=== PATIENT | male | born 1980 | race Caucasian/White ===

== ENCOUNTER 2021-04-24 06:44 | Inpatient (IN) | payer OTHER ==
[~2021-04-24] VITALS: Ht 182.9 cm; Wt 99.0 kg
--- NOTE | 2021-04-24 06:45 | NUR ---
INITIAL PT CONTACT. PT PRESENTS TO ED VIA EMS A TRANSFER FROM [facility], DX NSTEMI TROP OF 0.6. INITIALLY C/O CHEST PAIN NOW RESOLVED. HX OF PRIOR NSTEMI. PT GIVEN 4 DOSES OF NTG GOODS LAYER. PT DENIES ANY COMPLAINTS AT THIS TIME, ASIDE FROM HEADACHE. PT SITTING UPRIGHT ON GURNEY, CONTINUOUS MONITORING IN PLACE. CALL LIGHT AND BELONGINGS WITHIN REACH. EKG COMPLETE UPON ARRIVAL. SPOUSE AT BEDSIDE.
--- NOTE | 2021-04-24 06:58 | NUR ---
BEDSIDE REPORT GIVEN TO TERESSA CHOW
[2021-04-24] MEDS ORDERED: SODIUM CHLORIDE FLUSH 10ML SYR IVF ONE (07:00)
[2021-04-24] MEDS ORDERED: LISI-170 PO (07:08)
--- NOTE | 2021-04-24 07:28 | NUR ---
REPORT TO CLAUDINE YOUSSEF
[2021-04-24 08:00] VITALS: BP 138/93
[2021-04-24] MEDS ORDERED: ONDANSETRON 2MG/ML, 2ML IVPush PRN (08:30)
[2021-04-24] MEDS ORDERED: LABETALOL 5MG/ML, 20ML IVPush PRN (08:30)
[2021-04-24] MEDS ORDERED: ONDANSETRON ODT 4 MG PO PRN (08:30)
[2021-04-24] MEDS ORDERED: NITROGLYCERIN 0.4 MG BOTTLE (25 TABS) SL PRN (08:30)
[2021-04-24] MEDS ORDERED: ACETAMINOPHEN 325 MG TABLET PO PRN (08:30)
[2021-04-24] MEDS ORDERED: HEPARIN 5,000 UNITS/ML, 1ML IV ONE (09:00)
[2021-04-24] MEDS ORDERED: HEPARIN 25,000 UNITS/250ML PMX 250 ML IV PRN (09:00)
[2021-04-24] MEDS ORDERED: HEPARIN 5,000 UNITS/ML, 1ML IV PRN (09:00)
[2021-04-24] MEDS: LISINOPRIL 5 MG TABLET PO SCH (09:07)
[2021-04-24] MEDS: SODIUM CHLORIDE 0.9% 1,000 ML IV SCH ×2 (09:07→22:59)
[2021-04-24 09:13] LABS: BASOPHILS % (AUTO) 0 % (0-1); EOSINOPHILS % (AUTO) 2 % (1-7); LYMPHOCYTES % (AUTO) 32 % (22-44); MEAN CORPUSCULAR HEMOGLOBIN 29.9 pg (27.5-34.5); MEAN CORPUSCULAR HGB CONC 34.3 g/dL (33.2-36.2); MEAN PLATELET VOLUME 7.5 fL (7.4-10.4); MONOCYTES % (AUTO) 9 % (2-9); NEUTROPHILS % (AUTO) 57 % (42-75); PLATELET COUNT 219 x10^3/uL (130-400)
[2021-04-24 09:15] LABS: ANION GAP 10 mmol/L (5-15); CHLORIDE 108 mmol/L (98-107); CREATININE 0.87 mg/dL (0.7-1.3)
[2021-04-24] MEDS: COLCHICINE 0.6 MG CAPSULE PO SCH ×2 (10:22→20:10)
[2021-04-24] MEDS: KETOROLAC 30 MG/1 ML IVPush SCH ×3 (10:22→20:10)
[2021-04-24 12:43] VITALS: BP 138/93
[2021-04-24 15:34] VITALS: BP 131/90
[2021-04-24] MEDS: CARVEDILOL 3.125 MG TABLET PO SCH (17:51)
[2021-04-24 19:14] VITALS: BP 119/80
[2021-04-24] MEDS ORDERED: ATORVASTATIN 80 MG TABLET PO SCH (21:00)
[2021-04-24 22:46] VITALS: BP 154/98
[2021-04-24] MEDS: morphine SULFATE 10 MG/ML, 1ML IVPush PRN ×2 (22:58→23:23)
[2021-04-24] MEDS ORDERED: NITROGLYCERIN 0.4 MG/SPRAY SL PRN (23:00)
[2021-04-25 01:18] VITALS: BP 114/73
[2021-04-25 05:07] LABS: BASOPHILS % (AUTO) 0 % (0-1); EOSINOPHILS % (AUTO) 2 % (1-7); LYMPHOCYTES % (AUTO) 33 % (22-44); MEAN CORPUSCULAR HEMOGLOBIN 30.6 pg (27.5-34.5); MEAN CORPUSCULAR HGB CONC 34.9 g/dL (33.2-36.2); MEAN PLATELET VOLUME 8.1 fL (7.4-10.4); MONOCYTES % (AUTO) 8 % (2-9); NEUTROPHILS % (AUTO) 58 % (42-75); PLATELET COUNT 210 x10^3/uL (130-400); RED BLOOD COUNT 4.61 x10^6/uL (4.38-5.82); RED CELL DISTRIBUTION WIDTH 13.8 % (9.4-14.8)
[2021-04-25 05:16] LABS: ANION GAP 5 mmol/L (5-15); CALCIUM 8.3 mg/dL (8.5-10.1); CHLORIDE 111 mmol/L (98-107); CREATININE 0.73 mg/dL (0.7-1.3)
[2021-04-25 05:18] VITALS: BP 127/85
[2021-04-25] MEDS: KETOROLAC 30 MG/1 ML IVPush SCH ×2 (05:20→09:41)
[2021-04-25] MEDS: CARVEDILOL 3.125 MG TABLET PO SCH (05:21)
[2021-04-25] MEDS ORDERED: ASPIRIN 325 MG TABLET EC PO SCH (06:00)
[2021-04-25 06:49] VITALS: BP 123/78
[2021-04-25] MEDS: COLCHICINE 0.6 MG CAPSULE PO SCH (09:41)
[2021-04-25] MEDS: LISINOPRIL 5 MG TABLET PO SCH (09:41)
[2021-04-25 12:44] VITALS: BP 132/76
[2021-04-25] MEDS ORDERED: LISI5TAB7 PO (13:14)
== END 2021-04-25 15:52 | disposition home or self-care (01) | DRG 315 ==
LOC: ED 07:04 → 5SO 07:56
PROVIDERS: ADMIT Internal Medicine; ATTEND Internal Medicine
DX: I51.4 Myocarditis, unspecified (principal); I31.9 Disease of pericardium, unspecified; J45.909 Unspecified asthma, uncomplicated; I25.2 Old myocardial infarction; Z82.3 Family history of stroke
CPT/HCPCS: 36415; 80048; 84484; 85025; 85520; 93005; 96374; 96375; 96376; G0378; J1885; J2405; J2270; J7030